=== PATIENT | female | born 1995 | race Caucasian/White ===

== ENCOUNTER 2020-10-13 04:50 | Outpatient (REF) | payer SELFPAY | END 2020-10-13 05:10 | LOC: LBO 04:50 | PROVIDERS: PCP Nurse Practitioner Family; Visit Provider Nurse Practitioner Family | DX: R69 Illness, unspecified (principal) ==

== ENCOUNTER 2020-10-13 11:18 | Outpatient (CLI) | payer OTHER, SELFPAY ==
[2020-10-15 15:59] LABS: Hepatitis C Ab w Rflx HCV PCR Negative (Negative)
[2020-10-15 16:40] LABS: HIV-1/2 Ag & Ab Screen Negative (Negative)
== END 2020-10-13 11:38 ==
PROVIDERS: Nurse Practitioner Family; PCP Nurse Practitioner Family; Visit Provider Nurse Practitioner Family
DX: Z57.8 Occupational exposure to other risk factors (principal); Z11.59 Encounter for screening for other viral diseases; Z11.4 Encounter for screening for human immunodeficiency virus [HIV]
CPT/HCPCS: 36415; 86803; 87389

== ENCOUNTER 2022-11-13 13:34 | Outpatient (CLI) | payer OTHER, SELFPAY ==
--- NOTE | 2022-11-13 15:27 | DI.RAD_ITS ---
Exam(s) XR CHEST 2V PA LATERAL EXAM: XR CHEST 2V PA LATERAL CLINICAL HISTORY: CHEST PRESSURE, PALPITATIONS,R07.89,R00.2 TECHNIQUE: 2D digital imaging was performed. COMPARISON: No exams were available for comparison FINDINGS: HEART: Normal size. Aorta: Not dilated. PULMONARY VASCULATURE: Normal. LUNGS: Clear. PLEURAL SPACE: No pleural effusion or pneumothorax. BONE:Unremarkable for age. IMPRESSION: No acute abnormality. DATA REPOSITORY: RADIATION DOSE DELIVERED:
[2022-11-13 15:54] LABS: HGB 13.1 g/dL (11.2-15.7); MCHC 32.8 % (32.0-36.0); MCV 92 fL (80-95); MPV 9.3 fL (8.0-11.0); Platelet Count 227 10^3/uL (130-400); RBC 4.37 10^6/uL (3.93-5.22); RDW 12.5 % (11.7-14.6); RDW-SD 41.7 fL; WBC 7.55 10^3/uL (4.4-10.8)
[2022-11-13 16:28] LABS: Ferritin 50 ng/mL (8-252)
[2022-11-13 17:33] LABS: Iron 39 ug/dL (50-170); Total Iron Binding Capacity 326 ug/dL (250-450); Transferrin Sat 12 % (15-50)
== END 2022-11-13 13:54 ==
LOC: DI 13:35
PROVIDERS: PCP Nurse Practitioner Family; Visit Provider Nurse Practitioner Family
DX: R07.89 Other chest pain (principal); R00.2 Palpitations
CPT/HCPCS: 36415; 85027; 71046; 82728; 83540; 83550; 85025

== ENCOUNTER 2023-01-29 18:10 | Outpatient (REF) | payer OTHER, SELFPAY ==
[2023-01-29 18:39] LABS: Bilirubin Negative (Negative); Blood Trace-intact (Negative); Clarity Sl Cloudy (Clear); Glucose Negative (Negative); Ketones Negative (Negative); Leukocyte Esterase Trace (Negative); Nitrite Negative (Negative); Specific Gravity 1.025 (1.005-1.025); Urobilinogen 0.2 mg/dL (Up to 0.2)
[2023-01-29 18:51] LABS: RBC 0-2 HPF (0-2)
[2023-01-29 18:52] LABS: Bacteria Few HPF (Negative); C & S Indicated? C&S Done As Ordered; Casts Negative LPF (Negative); Crystals Negative HPF (Negative); Epithelial Cells Few HPF (Negative); Mucus Negative (Negative)
== END 2023-01-29 18:11 | disposition home or self-care (01) ==
LOC: LBN 18:10
PROVIDERS: PCP Nurse Practitioner Family; Visit Provider Advanced Practice Midwife
DX: R30.0 Dysuria (principal)
CPT/HCPCS: 81003; 81015; 87086

== ENCOUNTER 2024-03-20 13:19 | Outpatient (CLI) | payer OTHER, SELFPAY ==
[2024-03-20 07:51] LABS: Abs Immature Grans 0.02 10^3/uL (0.0-0.06); Absolute Basophil Count 0.07 10^3/uL (0.0-0.2); Absolute Eosinophil Count 0.09 10^3/uL (0.0-0.7); Absolute Monocyte Count 0.45 10^3/uL (0.1-0.8); Absolute Neutrophil Count 3.14 10^3/uL (1.2-6.7); Basophils % 1.2 %; Eosinophils % 1.5 %; HCT 42.5 % (36.0-46.0); HGB 13.7 g/dL (11.2-15.7); Immature Grans % 0.3 %; Lymphocytes % 36.9 %; MCH 29.7 pg (27.0-33.0); MCHC 32.2 % (32.0-36.0); MCV 92 fL (80-95); MPV 9.2 fL (8.0-11.0); Monocytes % 7.5 %; Neutrophils % 52.6 %; Platelet Count 226 10^3/uL (130-400); RBC 4.62 10^6/uL (3.93-5.22); RDW 12.9 % (11.7-14.6); RDW-SD 43.3 fL; WBC 5.97 10^3/uL (4.4-10.8)
[2024-03-20 08:17] LABS: ALT 24 U/L (14-59); AST 13 U/L (15-37); Albumin 4.3 g/dL (3.4-5.0); Alkaline Phosphatase 90 U/L (46-116); Anion Gap 9.7 mmol/L (3-11); BUN 14 mg/dL (7-18); Bilirubin, Total 0.65 mg/dL (0.2-1.0); CO2 27.3 mmol/L (21.0-32.0); CREATININE 0.8 mg/dL (0.55-1.02); Calcium 9.2 mg/dL (8.5-10.1); Chloride 103 mmol/L (98-107); Estimated GFR 102.22 (mL/min/1.73m2); Ferritin 146 ng/mL (8-252); Glucose 106 mg/dL (74-106); Potassium 4.2 mmol/L (3.5-5.1); Sodium 140 mmol/L (136-145); Total Protein 7.5 g/dL (6.4-8.2)
== END 2024-03-20 13:20 | disposition home or self-care (01) ==
LOC: LBO 13:19
PROVIDERS: PCP Nurse Practitioner Family; Visit Provider Internal Medicine Hematology & Oncology
DX: D50.0 Iron deficiency anemia secondary to blood loss (chronic) (principal)
CPT/HCPCS: 36415; 80053; 82728; 85025

== ENCOUNTER 2024-05-29 04:05 | Outpatient (CLI) | payer OTHER, SELFPAY ==
[2024-05-29 08:10] LABS: Abs Immature Grans 0.08 10^3/uL (0.0-0.06); Absolute Eosinophil Count 0.13 10^3/uL (0.0-0.7); Absolute Lymphocyte Count 2.14 10^3/uL (1.2-3.4); Absolute Neutrophil Count 3.36 10^3/uL (1.2-6.7); Basophils % 1.6 %; HCT 39.8 % (36.0-46.0); HGB 13.4 g/dL (11.2-15.7); Immature Grans % 1.2 %; Lymphocytes % 33.4 %; MCH 30.7 pg (27.0-33.0); MCHC 33.7 % (32.0-36.0); MCV 91 fL (80-95); MPV 9.2 fL (8.0-11.0); Monocytes % 9.4 %; Neutrophils % 52.4 %; Platelet Count 293 10^3/uL (130-400); RBC 4.37 10^6/uL (3.93-5.22); RDW 13.2 % (11.7-14.6); RDW-SD 44.3 fL; WBC 6.41 10^3/uL (4.4-10.8)
[2024-05-29 09:15] LABS: ALT 30 U/L (14-59); AST 14 U/L (15-37); Albumin 4.2 g/dL (3.4-5.0); Alkaline Phosphatase 106 U/L (46-116); Anion Gap 11.4 mmol/L (3-11); BUN 16 mg/dL (7-18); Bilirubin, Total 0.52 mg/dL (0.2-1.0); CO2 25.6 mmol/L (21.0-32.0); CREATININE 0.8 mg/dL (0.55-1.02); Calcium 9.5 mg/dL (8.5-10.1); Chloride 103 mmol/L (98-107); Estimated GFR 102.22 (mL/min/1.73m2); Ferritin 135 ng/mL (8-252); Glucose 93 mg/dL (74-106); Potassium 4.2 mmol/L (3.5-5.1); Sodium 140 mmol/L (136-145); Total Protein 7.7 g/dL (6.4-8.2)
== END 2024-05-29 04:06 | disposition home or self-care (01) ==
LOC: LBO 04:05
PROVIDERS: PCP Nurse Practitioner Family; Visit Provider Internal Medicine Hematology & Oncology
DX: D50.0 Iron deficiency anemia secondary to blood loss (chronic) (principal)
CPT/HCPCS: 36415; 80053; 82728; 85025

== ENCOUNTER 2024-06-09 07:58 | Outpatient (REF) | payer OTHER, SELFPAY ==
[2024-06-12 14:51] LABS: Calprotectin <50.0 mcg/g
== END 2024-06-09 07:59 | disposition home or self-care (01) ==
LOC: LBN 07:58
PROVIDERS: PCP Nurse Practitioner Family; Visit Provider Physician Assistant Medical
DX: R19.4 Change in bowel habit (principal)
CPT/HCPCS: 83993

== ENCOUNTER 2024-08-13 01:21 | Outpatient (CLI) | payer OTHER, SELFPAY ==
--- NOTE | 2024-08-13 | DI.RAD_ITS ---
Exam(s) XR ABDOMEN FLAT PLATE EXAM: 2D digital imaging was performed. CLINICAL HISTORY: Ileitis, K52.9; s/p enterocapsule in stomach, did not reach small bowel,. COMPARISON: No exams were available for comparison TECHNIQUE: Supine views of the abdomen performed. FINDINGS: BOWEL GAS PATTERN: Nondistended. No enterocapsule visualized. Normal quantity of stool. CALCIFICATIONS: No radiopaque calcifications. OSSEOUS STRUCTURES: Normal for age. OTHER FINDINGS: No organomegaly. IMPRESSION: 1. Nonobstructive bowel gas pattern. No evidence of enterocapsule 2. No radiopaque calculi. DATA REPOSITORY: RADIATION DOSE DELIVERED:
== END 2024-08-13 01:41 ==
LOC: DI 01:21
PROVIDERS: PCP Nurse Practitioner Family; Visit Provider Internal Medicine Gastroenterology
DX: K52.9 Noninfective gastroenteritis and colitis, unspecified (principal)
CPT/HCPCS: 74018

== ENCOUNTER 2024-11-24 11:37 | Emergency (ER) | payer OTHER, SELFPAY ==
[2024-11-24] VITALS (27 sets, daily range): BP systolic 125–132; BP diastolic 74–98; PULSE 89–138; RESP 14–18; TEMP 37.3–37.9; O2SAT 97–99
--- NOTE | 2024-11-24 13:30 | DI.RAD_ITS ---
Exam(s) XR CHEST 2V PA LATERAL EXAM: XR CHEST 2V PA LATERAL CLINICAL HISTORY: COUGH TECHNIQUE: 2D digital imaging was performed. Two views. COMPARISON: CR XR CHEST 2V PA LATERAL from 11/13/2022 FINDINGS: HEART: Normal size. Aorta: Not dilated. PULMONARY VASCULATURE: Normal. MEDIASTINUM: Unremarkable. LUNGS: Clear. PLEURAL SPACE: No pleural effusion or pneumothorax. BONE:Unremarkable for age. SOFT TISSUES: Unremarkable. IMPRESSION: No acute abnormality. DATA REPOSITORY: RADIATION DOSE DELIVERED:
--- NOTE | 2024-11-24 13:49 | W.ED.GENAD ---
Discharge Plan Disposition Patient Disposition: Home Condition: Improving Discharge Details Clinical Impression: Influenza B Primary Care Provider: Scott Hirsch ED Provider: Jerica Hathaway Home Meds and New Rx's Prescriptions: No Action No Known Home Meds Discharge Instructions Instructions: Flu, Adult ED Additional Instructions: As we discussed, your chest x-ray is reassuring. Your labs are all within normal limits. You did appear very dehydrated improving after some fluids. He also had a high fever, this came down with Tylenol and encourage you to continue with Tylenol and ibuprofen as directed on packaging. Please get rest and hydrate as much as possible. Please follow up with primary care in one-two weeks for reevaluation. If you develop any new/worsneing symptoms, please seek care urgently once again. Referrals: Scott Hirsch [Primary Care Provider] - Discharge Data Discharge Date/Time-TO BE ENTERED AT DEPARTURE: 11/24/24 15:50 HPI General Date/Time Provider Initiated Documentation: 11/24/24 12:26. Limitations to Documentation: no limitations. Information obtained by: patient and RN notes reviewed. History of Present Illness 29 year old F presents to the emergency department with the chief complaint of cough, congestion, fatigue, fever, Quality is described as aching (general body aches), Patient started experiencing this day(s) and it has been constant. No relieving factors improve symptom(s), No exacerbating factors reported . Patient notes cough, fever/chills, headaches, loss of appetite and malaise; denies chest pain, nausea/vomiting, rash, shortness of breath and weakness. Patient did receive the following treatments prior to arrival, none Related Data Home Medications ?Medication ?Instructions ?Recorded ?Confirmed Unknown [No Known Home Meds] 11/24/24 11/24/24 Allergies Allergy/AdvReac Type Severity Reaction Status Date / Time No Known Allergies Allergy Unverified 11/24/24 11:53 General Stated Complaint: RespSymp MARIZA: 3 Review of Systems Constitutional Constitutional: Reports as per HPI Eyes Eyes: Reports as per HPI and Denies irritation ENT Ears, Nose, Mouth, and Throat: Reports as per HPI Cardiovascular Cardiovascular: Reports as per HPI, Denies chest pain and Denies dyspnea Respiratory Respiratory: Reports as per HPI and Denies dyspnea Gastrointestinal Gastrointestinal: Reports as per HPI, Denies abdominal pain, Denies change in bowel habits, Denies nausea and Denies vomiting Integumentary/Breasts Skin/Breast: Reports as per HPI and Denies rash Neurologic Neurologic: Reports as per HPI Exam Const General: cooperative, no acute distress, well developed, well groomed and ill appearing acutely Nutritional Appearance: average body habitus and well nourished Orientation: alert and awake [facility] Head: normal to inspection, normocephalic and atraumatic Ears: hearing grossly normal bilaterally General nose exam: external nose normal and nares normal Face and sinus: normal facial exam, sinuses nontender and face symmetric Mouth: oral mucosae normal, lip normal, tongue normal, oropharynx normal and moist mucous membranes Teeth and gingiva: dentition normal Throat: posterior oropharynx normal, tonsils normal and uvula midline Eyes General: appearance normal, both eyes and all related structures Neck Neck: normal visual inspection, full ROM, no lymphadenopathy and no meningeal signs Resp Effort & Inspection: normal respiratory effort, able to speak in complete sentences and no respiratory distress Auscultation: clear to auscultation bilaterally, no rales, no rhonchi and no wheezes Cardio Rate: tachycardic Rhythm: regular rhythm Heart Sounds: S1 normal and S2 normal Skin General skin exam: no rashes or lesions noted Neuro General: patient alert and patient awake Cognition: normal cognition Speech: speech normal Gait: normal gait Extrem General: no calf tenderness bilaterally and no edema Course Vital Signs Vital signs: Vital Signs Temperature 37.9 C H 11/24/24 11:47 Pulse 134 H 11/24/24 11:47 Respiratory Rate 18 11/24/24 11:47 Blood Pressure 132/98 H 11/24/24 11:47 Pulse Oximetry 97 11/24/24 11:47 Temperature 37.7 C H 11/24/24 13:37 Temperature Source Oral 11/24/24 13:37 Pulse 138 H 11/24/24 13:37 Pulse 129 H 11/24/24 13:40 Respiratory Rate 18 11/24/24 13:37 Respiratory Effort Normal 11/24/24 13:07 Respiratory Depth Normal 11/24/24 13:07 Blood Pressure 132/90 11/24/24 13:37 Blood Pressure Mean 104 11/24/24 13:37 Blood Pressure Position Sitting 11/24/24 13:37 Pulse Oximetry 99 11/24/24 13:37 Oxygen Delivery Method Room Air 11/24/24 13:37 Oxygen Flow Rate 0 11/24/24 13:37 Pain Level 0 11/24/24 13:07 Medical Decision Making Patient is a pleasant 29 year old female presenting today with c/c of fevers, body aches, cough, malaise. Started 5 days ago. She reports that she has been ill for the past several months associated with several illnesses including strep, soft tissue infection for which she has taken several courses of antibiotics. Patient is concerned that she was seen by her primary care after having these recurrent infections and that about 2 days into the course of this current infection, she was noted to have low white count and ANC. States that she has been trying to hydrate but has been very fatigued. No nausea, vomiting, diarrhea. Denies . On exam, patient appears Uncomfortable. She does not appear acutely toxic or in any respiratory distress, she does have HR 138, febrile at 37.7. Giving fluids, APAP. Will assess electrolytes, CBC, CMP. She denies PG. Lungs are clear, normal cardiac exam, no significant abnormality on HEENT exam. Concerned about her having dehydration. Will assess viral panel, chest x-ray and give IV hydration. Labs reviewed. No leukocytosis. ANC within normal limits. We did discuss that if she was positive for influenza B, sometimes viruses can cause an unexpected change in your white count or ANC. As this was at the peak of when she was ill, this may account for some of her symptoms. CMP within normal limits. Her heart rate and temperature of come down after fluids and acetaminophen. Patient was positive for influenza B. She is out of the window for any antivirals, endorses appropriate for influenza B. Chest x-ray reviewed by radiologist, no acute abnormalities. Did offer a work note but she reports that she is already taken a few days off from work. We did discuss supportive care. Encouraged follow-up with primary care. Return precautions were discussed. All of her questions and concerns were addressed and she is in agreement this plan This documentation was generated using [employer] system, please disregard any oddities of phrase or misspellings. Quality:SDOH Health Related Social Needs: No Data to Display PFSH All Active Problems (Updated 11/24/24 @ 15:32 by LISA Alvarado) Influenza B (Acute) Social History Smoking/Tobacco Use Status: Never Smoking risk assessment performed?: Yes Alcohol Intake: never Drug use: Never Substance use type: does not use
[2024-11-24] MEDS: Acetaminophen 500 MG TAB 1000 MG PO (14:32)
[2024-11-24] MEDS: Normal Saline 1,000 ML 1000 ML IV (14:36)
[2024-11-24 14:48] LABS: Abs Immature Grans 0.01 10^3/uL (0.0-0.06); Absolute Basophil Count 0.03 10^3/uL (0.0-0.2); Absolute Eosinophil Count 0.02 10^3/uL (0.0-0.7); Absolute Lymphocyte Count 1.56 10^3/uL (1.2-3.4); Absolute Monocyte Count 0.62 10^3/uL (0.1-0.8); Absolute Neutrophil Count 4.03 10^3/uL (1.2-6.7); Basophils % 0.5 %; Eosinophils % 0.3 %; HGB 13.5 g/dL (11.2-15.7); Immature Grans % 0.2 %; Lymphocytes % 24.9 %; MCH 30.4 pg (27.0-33.0); MCHC 32.1 % (32.0-36.0); MCV 95 fL (80-95); MPV 9.7 fL (8.0-11.0); Monocytes % 9.9 %; Neutrophils % 64.2 %; Platelet Count 221 10^3/uL (130-400); RBC 4.44 10^6/uL (3.93-5.22); RDW 12.9 % (11.7-14.6); RDW-SD 45.1 fL; WBC 6.27 10^3/uL (4.4-10.8)
[2024-11-24 15:12] LABS: ALT 35 U/L (14-59); AST 22 U/L (15-37); Albumin 4.4 g/dL (3.4-5.0); Alkaline Phosphatase 105 U/L (46-116); BUN 12 mg/dL (7-18); Bilirubin, Total 0.42 mg/dL (0.2-1.0); CREATININE 0.7 mg/dL (0.55-1.02); Calcium 9.2 mg/dL (8.5-10.1); Chloride 104 mmol/L (98-107); Estimated GFR 119.24 (mL/min/1.73m2); Glucose 92 mg/dL (74-106); Potassium 3.7 mmol/L (3.5-5.1); Sodium 140 mmol/L (136-145)
== END 2024-11-24 15:50 | disposition home or self-care (01) ==
PROVIDERS: Emergency Provider Physician Assistant; PCP Nurse Practitioner Family
DX: J10.1 Influenza due to other identified influenza virus with other respiratory manifestations (principal)
CPT/HCPCS: 80053; 96360; 99284; 71046; 85025; 99283

== ENCOUNTER 2024-12-01 16:04 | Outpatient (REF) | payer OTHER, SELFPAY | END 2024-12-01 16:05 | disposition home or self-care (01) | LOC: LBN 16:04 | PROVIDERS: PCP Nurse Practitioner Family; Visit Provider Nurse Practitioner Family | DX: J02.9 Acute pharyngitis, unspecified (principal) | CPT/HCPCS: 87077; 87070 ==

== ENCOUNTER 2025-02-04 16:36 | Outpatient (CLI) | payer OTHER, SELFPAY ==
[2025-02-04 16:02] LABS: Abs Immature Grans 0.02 10^3/uL (0.0-0.06); Absolute Basophil Count 0.07 10^3/uL (0.0-0.2); Absolute Eosinophil Count 0.09 10^3/uL (0.0-0.7); Absolute Lymphocyte Count 2.79 10^3/uL (1.2-3.4); Absolute Monocyte Count 0.61 10^3/uL (0.1-0.8); Absolute Neutrophil Count 4.14 10^3/uL (1.2-6.7); Basophils % 0.9 %; Eosinophils % 1.2 %; HCT 38.6 % (36.0-46.0); HGB 13.1 g/dL (11.2-15.7); Immature Grans % 0.3 %; Lymphocytes % 36.1 %; MCH 30.8 pg (27.0-33.0); MCHC 33.9 % (32.0-36.0); MCV 91 fL (80-95); MPV 9.3 fL (8.0-11.0); Monocytes % 7.9 %; Neutrophils % 53.6 %; Platelet Count 263 10^3/uL (130-400); RBC 4.25 10^6/uL (3.93-5.22); RDW 13.1 % (11.7-14.6); RDW-SD 43.4 fL; WBC 7.72 10^3/uL (4.4-10.8)
[2025-02-04 17:30] LABS: ALT 20 U/L (14-59); AST 16 U/L (15-37); Albumin 4.3 g/dL (3.4-5.0); Alkaline Phosphatase 106 U/L (46-116); Anion Gap 10.5 mmol/L (3-11); BUN 15 mg/dL (7-18); Bilirubin, Total 0.5 mg/dL (0.2-1.0); CO2 27.5 mmol/L (21.0-32.0); CREATININE 0.7 mg/dL (0.55-1.02); Calcium 9.3 mg/dL (8.5-10.1); Chloride 101 mmol/L (98-107); Estimated GFR 119.24 (mL/min/1.73m2); Ferritin 67 ng/mL (8-252); Glucose 90 mg/dL (74-106); Sodium 139 mmol/L (136-145); Total Protein 7.7 g/dL (6.4-8.2)
== END 2025-02-04 16:37 | disposition home or self-care (01) ==
LOC: LBO 16:36
PROVIDERS: PCP Nurse Practitioner Family; Visit Provider Internal Medicine Hematology & Oncology
DX: D50.0 Iron deficiency anemia secondary to blood loss (chronic) (principal)
CPT/HCPCS: 36415; 80053; 82728; 85025

== ENCOUNTER 2025-04-16 08:06 | Emergency (ER) | payer OTHER, SELFPAY ==
[2025-04-16 08:08] VITALS: BP 136/87; PULSE 111; RESP 16; TEMP 36; O2SAT 97
[2025-04-16 08:44] LABS: Abs Immature Grans 0.01 10^3/uL (0.0-0.06); HCT 37.3 % (36.0-46.0); HGB 12.3 g/dL (11.2-15.7); Immature Grans % 0.3 %; MCH 30.1 pg (27.0-33.0); MCHC 33.0 % (32.0-36.0); MCV 91 fL (80-95); MPV 9.6 fL (8.0-11.0); Platelet Count 181 10^3/uL (130-400); RBC 4.08 10^6/uL (3.93-5.22); RDW 13.0 % (11.7-14.6); RDW-SD 43.2 fL; WBC 2.98 10^3/uL (4.4-10.8)
--- NOTE | 2025-04-16 08:48 | W.ED.GENAD ---
Discharge Plan Disposition Patient Disposition: Home Condition: Stable Discharge Details Clinical Impression: Mesenteric adenitis, Enteritis, Acute dehydration, Hypokalemia Primary Care Provider: Scott Hirsch ED Provider: Manfred Andrade Home Meds and New Rx's Prescriptions: New ondansetron 4 mg tablet,disintegrating 4 mg PO Q8H PRN (Reason: nausea and vomiting) Qty: 10 0RF Continued venlafaxine 37.5 mg tablet 37.5 mg PO DAILY Zyrtec 10 mg capsule 10 mg PO DAILY PRN Discharge Instructions Instructions: Mesenteric Lymphadenitis (DC), Diarrhea, Adult ED Additional Instructions: Please drink plenty of fluids to stay hydrated and allow for plenty of rest over the next few days. Please follow-up with your primary care physician. Call today to arrange follow-up for reassessment next week. Return to the emergency department immediately for any worsening or new concerning symptoms. Stand Alone Forms: Work Release Referrals: Scott Hirsch [Primary Care Provider] [facility] General Mode of arrival: ambulatory. Date/Time Provider Initiated Documentation: 04/16/25 08:23. Limitations to Documentation: no limitations. Information obtained by: patient. HPI Narrative: HISTORY OF PRESENT ILLNESS 29yo female with endometriosis presenting with abdominal pain. On Sunday afternoon, she experienced body aches, primarily in her back, pelvic pain, and bloody vaginal discharge, suspecting a flare-up of endometriosis. Her menstrual cycle is irregular. Yesterday, she developed diarrhea with loose stools, nausea, and dark stool this morning. She has taken Pepto-Bismol, Imodium, Gas-X, Tylenol, and Motrin. No urinary symptoms, rash, or swelling. Pain has lessened but intensifies with bowel movements. This morning, she had crampy pain in the right upper abdomen. Her daughter had fever on Sunday without bowel symptoms. No recent cough or rectal bleeding. History of colon inflammation and diverticulosis, unclear if related to current symptoms. Typically experiences nausea and vomiting for 12 hours with gastrointestinal bugs, but this is new. Unable to sleep for two nights due to heartburn and restless legs. Suspects dehydration and electrolyte imbalance. Related Data Home Medications ?Medication ?Instructions ?Recorded ?Confirmed cetirizine 10 mg capsule (Zyrtec) 10 mg PO DAILY PRN 12/05/24 04/16/25 venlafaxine 37.5 mg tablet 37.5 mg PO DAILY 12/05/24 04/16/25 ondansetron 4 mg disintegrating 4 mg PO Q8H PRN nausea and 04/16/25 tablet vomiting #10 tabs Previous Rx's ?Medication ?Instructions ?Recorded ondansetron 4 mg disintegrating 4 mg PO Q8H PRN nausea and 04/16/25 tablet vomiting #10 tabs Allergies Allergy/AdvReac Type Severity Reaction Status Date / Time No Known Allergies Allergy Unverified 04/16/25 08:14 General Stated Complaint: Abd Prob MARIZA: 3 Review of Systems All systems reviewed & are unremarkable except as noted in HPI and below Constitutional Constitutional: Denies fever(s) Exam Const General: cooperative and no acute distress HENMT Mouth: mucous membranes dry Eyes Conjunctivae: normal conjunctivae Sclera: normal sclerae Neck Neck: trachea midline and supple Resp Auscultation: clear to auscultation bilaterally, no rales, no rhonchi and no wheezes Cardio Rate: tachycardic Rhythm: regular rhythm GI Inspection: non-distended Palpation: soft, not firm, no guarding, no masses, not rigid and tender in the epigastrum Auscultation: normal bowel sounds Skin General skin exam: no rashes or lesions noted Neuro General: patient alert, patient awake and tone normal Extrem General: no edema Psych Appearance: grossly normal Mental Status: mental status grossly normal Course Vital Signs Vital signs: Vital Signs Temperature 36.0 C L 04/16/25 08:08 Pulse 111 H 04/16/25 08:08 Respiratory Rate 16 04/16/25 08:08 Blood Pressure 136/87 04/16/25 08:08 Pulse Oximetry 97 04/16/25 08:08 Temperature 36.0 C L 04/16/25 08:08 Temperature Source Tympanic 04/16/25 08:08 Pulse 111 H 04/16/25 08:08 Respiratory Rate 16 04/16/25 08:08 Blood Pressure 136/87 04/16/25 08:08 Pulse Oximetry 97 04/16/25 08:08 Lab/Test Results Lab/Test Results: Laboratory Tests Range/Units 04/16/25 08:23 WBC (4.4-10.8) 10^3/uL 2.98 L RBC (3.93-5.22) 10^6/uL 4.08 Hgb (11.2-15.7) g/dL 12.3 Hct (36.0-46.0) % 37.3 MCV (80-95) fL 91 MCH (27.0-33.0) pg 30.1 MCHC (32.0-36.0) % 33.0 RDW (11.7-14.6) % 13.0 Plt Count (130-400) 10^3/uL 181 MPV (8.0-11.0) fL 9.6 Immature Gran % % 0.3 Neutrophils % % 54.5 Lymphocytes % % 29.5 Monocytes % % 14.4 Eosinophils % % 0.3 Basophils % % 1.0 Nucleated RBC % (0.0-0.3) % 0.0 Absolute Neutrophils (1.2-6.7) 10^3/uL 1.62 Absolute Lymphocytes (1.2-3.4) 10^3/uL 0.88 L Absolute Monocytes (0.1-0.8) 10^3/uL 0.43 Absolute Eosinophils (0.0-0.7) 10^3/uL 0.01 Absolute Basophils (0.0-0.2) 10^3/uL 0.03 Medical Decision Making ASSESSMENT AND PLAN Initial Assessment: Abdominal pain, diarrhea, body aches, and dehydration. Symptoms started three days ago with heartburn, restless legs, and bloody discharge. History of endometriosis and chronic colon inflammation. Differential Diagnosis: - Gastrointestinal infection: Likely cause. Administer IV fluids and evaluate blood work. - Diverticulitis: Considered but unlikely due to absence of peritoneal findings. CT scan if necessary. - Endometriosis ED Course: - Administered IV fluids. - Blood work obtained. - Provided nausea medication. - Labs reviewed -mild hypokalemia noted with potassium 3.4. I will give oral potassium replacement. - CT reviewed and interpreted by radiology: 1. Mildly enlarged lymph nodes seen in the mesentery. This can be seen with a mesenteric adenitis. 2. Otherwise, no acute abdominal pelvic process. - All results discussed with the patient. Patient reassessed and feeling better. Tachycardia resolved after IV fluids. - A medical screening exam was performed and no acute medical condition identified. Patient stable for discharge. Final Assessment: Abdominal pain, diarrhea, and dehydration. Administered IV fluids and obtained blood work. Nausea medication provided. Clinical Impression: - Gastrointestinal infection - Mesenteric adenitis - Dehydration - Nausea - Mild hypokalemia Disposition: - Plan for discharge with outpatient follow-up. MDM Components Evaluation: - Number of Differential Diagnoses or Management Options: Severe gastrointestinal infection, Diverticulitis - Amount and Complexity of Data Reviewed: Blood work - Risk of Complication and Morbidity or Mortality: Moderate risk due to dehydration and potential gastrointestinal infection. This document was written with the assistance of JACOB Cater to [employer]lynda. The patient consented to its use. 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
[2025-04-16 08:55] LABS: ALT 33 U/L (14-59); AST 20 U/L (15-37); Albumin 3.9 g/dL (3.4-5.0); Alkaline Phosphatase 93 U/L (46-116); Anion Gap 11.3 mmol/L (3-11); BUN 8 mg/dL (7-18); Bilirubin, Total 0.7 mg/dL (0.2-1.0); CO2 26.7 mmol/L (21.0-32.0); Calcium 8.8 mg/dL (8.5-10.1); Chloride 104 mmol/L (98-107); Estimated GFR 119.24 (mL/min/1.73m2); Glucose 104 mg/dL (74-106); Lipase 24 U/L (<78); Magnesium 1.9 mg/dL (1.8-2.4); Potassium 3.4 mmol/L (3.5-5.1); Sodium 142 mmol/L (136-145); Total Protein 7.0 g/dL (6.4-8.2)
[2025-04-16] MEDS: Lactated Ringers 1,000 ML 1000 ML IV (08:57)
[2025-04-16] MEDS: Ondansetron 4 MG/2 ML VIAL IVP (08:58)
[2025-04-16 09:11] LABS: Glucose Negative (Negative)
[2025-04-16 09:25] LABS: C & S Indicated? No; WBC 0-2 HPF (0-5)
--- NOTE | 2025-04-16 10:15 | DI.CT_ITS ---
Exam(s) CT ABDOMEN PELVIS W EXAM: CT ABDOMEN PELVIS W CLINICAL HISTORY: abdominal pain, loose stool, ? diverticulitis TECHNIQUE: Imaging Protocol: Axial computed tomography images with coronal and sagittal reformatted images were created and reviewed. CONTRAST MATERIAL: Intravenous: Omnipaque 350 Contrast volume:75 mL Oral: No COMPARISON: MR MRI ENTEROGRAPHY JUSTIN FARRIS from 06/27/2024 FINDINGS: ABDOMEN: Lung Bases: No acute abnormality. Liver: Normal density. No measurable mass. Portal, Superior Mesenteric, and Splenic Veins: Unremarkable. Gallbladder and Biliary Tract: No radiodense calculus or dilation. Pancreas: Normal density, no abnormal calcifications or inflammatory process. Spleen: Normal. Adrenals: No masses seen. Kidneys: Normal size, contour and axis. No radiodense stones or obstructive uropathy. No masses seen. Abdominal Aorta: Abdominal portion non-dilated. Bowel: No obstruction or bowel wall thickening. Appendix is unremarkable. Peritoneal Cavity: No ascites, collection or mesenteric inflammatory response. No free air. Lymph Nodes: There are mildly enlarged lymph nodes seen in the mesentery. Bones: Within normal limits for the patient's age. Soft Tissues: Unremarkable. PELVIS: Bladder: Symmetric distention, no gross wall thickening. Reproductive Organs: There is an IUD in the pelvis. The position appears grossly unremarkable. Lymph Nodes: Within normal limits. Bones: Within normal limits for the patient's age. IMPRESSION: 1. Mildly enlarged lymph nodes seen in the mesentery. This can be seen with a mesenteric adenitis. 2. Otherwise, no acute abdominal pelvic process. RADIATION DOSE DELIVERED: 496.29mGy.cm Total DLP DATA REPOSITORY: All CT scans at this facility are submitted to the National Radiology Data Registry (NRDR) Dose Index Registry (DIR) with the [employer] ([employer]). RADIATION OPTIMIZATION: All CT scans at this facility use at least one of these dose optimization techniques: automated exposure control; mA and/or kV adjustment per patient size (includes targeted exams where dose is matched to clinical indication); or iterative reconstruction.
[2025-04-16] MEDS: Lactated Ringers 500 ML 1000 ML IV (10:20)
[2025-04-16] MEDS: Normal Saline - Diluent 50 ML VIAL IJ (10:30)
[2025-04-16] MEDS: Omnipaque 350 MG/ML 500 ML BTL-Imaging package IJ (10:32)
[2025-04-16] MEDS: Potassium Chloride 20 MEQ TABCR PO (11:57)
== END 2025-04-16 12:28 | disposition home or self-care (01) ==
PROVIDERS: Emergency Provider Student in an Organized Health Care Education/Training Program; PCP Nurse Practitioner Family
DX: K52.9 Noninfective gastroenteritis and colitis, unspecified (principal); I88.0 Nonspecific mesenteric lymphadenitis; E86.0 Dehydration; E87.6 Hypokalemia; R11.0 Nausea
CPT/HCPCS: 99284; 99285; 96374; 80053; 83690; 96361; 74177; 81003; 81015; 83735; 85025; J2405